=== PATIENT | male | born 1940 | race Caucasian/White ===

== ENCOUNTER 2017-11-22 16:08 | Inpatient (IN) | payer OTHER ==
[~2017-11-22] VITALS: Ht 167.6 cm; Wt 102.1 kg
[2017-11-22] VITALS (8 sets, daily range): BP systolic 141–172; BP diastolic 44–70
[2017-11-22 16:51] LABS: ABSOLUTE EOSINOPHILS 0.1 thou/uL (0.0-0.7); ABSOLUTE LYMPHOCYTES 1.5 thou/uL (0.8-5.3); ABSOLUTE MONOCYTES 0.5 thou/uL (0.0-1.2); BASOPHILS 0.6 %; EOSINOPHILS 0.8 %; HEMATOCRIT 20.1 % (42.0-52.0); LYMPHOCYTES 18.8 %; MCH 23.4 pg (26.0-34.0); MCHC 30.4 g/dL (28.0-37.0); MCV 76.9 fL (80.0-100.0); MONOCYTES 6.2 %; MPV 6.9 fl. (7.2-11.1); NUCLEATED RBCS 0 /100WBC; PLATELET COUNT* 251 thou/uL (150-400); POLYS 73.6 %; RDW-CV 18.1 % (10.5-14.5); WBC 8.2 thou/uL (4.0-11.0)
[2017-11-22 17:00] LABS: ANION GAP 10 mmol/L (7-16); BUN 24 mg/dL (7-18); CALCIUM 8.5 mg/dL (8.5-10.1); CHLORIDE 104 mmol/L (98-107); CO2 24 mmol/L (21-32); CREATININE 1.8 mg/dL (0.6-1.3); GLUCOSE 228 mg/dL (70-99); POTASSIUM 4.6 mmol/L (3.5-5.1); RBC 2.62 mil/uL (4.50-6.00); SODIUM 138 mmol/L (136-145)
[2017-11-22 17:01] LABS: APTT 25.3 Seconds (25.0-31.3); HEMOGLOBIN 6.1 gm/dL (14.0-18.0); INR 1.1; PROTIME 10.9 Seconds (9.20-11.50)
[2017-11-22 17:10] LABS: ALBUMIN 3.2 g/dL (3.4-5.0); ALKALINE PHOSPHATASE 72 U/L (46-116); NT-PRO BRAIN NAT PEPTIDE 1961 pg/mL (<300); SGOT 19 U/L (15-37); SGPT 30 U/L (30-65); TOTAL BILIRUBIN 0.5 mg/dL (<0.1-1.0); TOTAL PROTEIN 6.6 g/dL (6.4-8.2); TROPONIN-I LEVEL <0.06 ng/mL (<0.06)
[2017-11-22] MEDS ORDERED: AMIODARONE HCL100 MG PO (17:21)
[2017-11-22] MEDS ORDERED: VITAMIN D3400 UNIT PO (17:22)
[2017-11-22] MEDS ORDERED: TRAVATAN Z2.5 ML OPHTHALMIC (17:23)
[2017-11-22] MEDS ORDERED: PRAVACHOL80 MG PO (17:23)
[2017-11-22] MEDS ORDERED: IRON325 PO (17:23)
[2017-11-22] MEDS ORDERED: HYDROCHLOROTHIA25 M1 PO (17:24)
[2017-11-22] MEDS ORDERED: DIOVAN320 MG PO (17:24)
[2017-11-22] MEDS ORDERED: NORVASC5 MG PO (17:24)
[2017-11-22] MEDS ORDERED: COREG6.25 MG PO (17:25)
[2017-11-22] MEDS ORDERED: HYDRALAZINE 2525 MG PO (17:25)
[2017-11-22] MEDS ORDERED: MAGOX 400400 MG PO (17:26)
[2017-11-22] MEDS ORDERED: GLIPIZIDE 10 MG10 MG PO (17:26)
[2017-11-22] MEDS ORDERED: METFORMIN HCL500 MG PO (17:26)
[2017-11-22] MEDS ORDERED: VITAMIN B-12500 MCG PO (17:27)
[2017-11-23] VITALS (10 sets, daily range): BP systolic 145–163; BP diastolic 55–72
[2017-11-23 03:28] LABS: HEMATOCRIT 23.7 % (42.0-52.0); HEMOGLOBIN 7.5 gm/dL (14.0-18.0); MCHC 31.7 g/dL (28.0-37.0); MCV 78.7 fL (80.0-100.0); MPV 6.8 fl. (7.2-11.1); RBC 3.01 mil/uL (4.50-6.00); RDW-CV 18.3 % (10.5-14.5)
[2017-11-23 03:30] LABS: URINE BILIRUBIN NEGATIVE (Negative); URINE BLOOD NEGATIVE (Negative); URINE CLARITY CLEAR; URINE COLOR YELLOW; URINE GLUCOSE-RANDOM NEGATIVE (Negative); URINE KETONES NEGATIVE (Negative); URINE LEUKOCYTES-REFLEX NEGATIVE (Negative); URINE NITRITE-REFLEX NEGATIVE (Negative); URINE PROTEIN TRACE (Negative); URINE SPECIFIC GRAVITY 1.015 (1.005-1.030); URINE UROBILINOGEN 0.2 E.U./dl (0.2-1.0)
[2017-11-23 05:17] LABS: ALBUMIN 3.1 g/dL (3.4-5.0); CALCIUM 8.3 mg/dL (8.5-10.1); CREATININE 1.7 mg/dL (0.6-1.3); POTASSIUM 4.4 mmol/L (3.5-5.1); TOTAL BILIRUBIN 1.1 mg/dL (<0.1-1.0); TOTAL PROTEIN 5.8 g/dL (6.4-8.2)
--- NOTE | 2017-11-23 06:45 | NUR ---
ADMITTED TO ICU BED 2 @ 2024. PT RECEIVED 2 UNITS PRBC'S FOR HGB OF 6.1, RECHECK LEVEL 7.5. PT REPORTS SIGNIFICANTLY LESS SOA WHEN GETTING UP TO BSC SINCE TRANSFUSION COMPLETED. PT WEARS CPAP AT HOME FOR SLEEP APNEA BUT DOES NOT HAVE IT WITH HIM. ATTEMPTED TO SLEEP WITH NC ONLY BUT DESATED TO 85% AND AWOKE FEELING VERY SOA. PER DR RODRIGUEZ, PT PLACED ON BIPAP AT . PT ASSISTED TO BSC MULTIPLE TIMES TONIGHT WITH SBA ONLY. CALL LIGHT WITHIN REACH.
--- NOTE | 2017-11-23 10:17 | NUR ---
PATIENT CARE ASSUMED AT 0700. PATIENT AOX4. INDEPENDENT. NO LONGER EXHIBITING SOA. DENIES PAIN. AFTER 2 UNITS PRBCS, HGB 7.5. FAMILY TO BRING IN HOME CPAP, PATIENT STATED HE DID NOT SLEEP WELL WITH HOSPITAL BIPAP. DR. NÚÑEZ IN TO SEE PATIENT WHO STATED HE CAN DOWNGRADE TO MED/TELEMETRY, HAVE REGULAR DIET, AND WILL SCOPE PATIENT TOMORROW. ORDERS FOR NPO AFTER 0600.
--- NOTE | 2017-11-23 16:55 | EKG ---
[place] [id number] ELECTROCARDIOGRAM REPORT Name: DARRYN JOSHI Room: [address] ADM IN .R.#: [id number] Admission: 11/22/17 Attend Phys: Marquez Tsai, Discharge: Date of : 42 Report #: [id number] THIS REPORT FOR: //name// [facility] Test Date: 2017-11-22 Test Time: 17:15:54 Pat Name: DARRYN JOSHI Department: Room: [facility] Gender: M Acute Care Registered Nurse: NALLELY : 1940 Requested By: Brijesh Servin Order Number: [id number] MD: Jordy Laws Measurements Intervals [place] Rate: 60 P: CT: QRS: -24 QRSD: 175 T: 117 QT: 484 QTc: 484 Interpretive Statements Junctional rhythm Left bundle branch block Baseline wander in lead(s) V4 No previous ECG available for comparison Electronically Signed On 11-23-2017 16:55:00 CDT by Jordy Laws [email or web address] <ELECTRONICALLY SIGNED> By: Jordy Laws MD, [facility] 11/23/17 1655 14 Jordy Laws MD, FACC /EPI
--- NOTE | 2017-11-23 17:20 | NUR ---
PATIENT TRANSFERED TO [facility] AT 1630.
[2017-11-23 19:07] LABS: HEMATOCRIT 26.5 % (42.0-52.0); HEMOGLOBIN 8.3 gm/dL (14.0-18.0); MCH 24.8 pg (26.0-34.0); MCHC 31.4 g/dL (28.0-37.0); MCV 79.1 fL (80.0-100.0); MPV 7.3 fl. (7.2-11.1); RBC 3.35 mil/uL (4.50-6.00); RDW-CV 18.3 % (10.5-14.5)
[2017-11-24] VITALS (18 sets, daily range): BP systolic 96–143; BP diastolic 49–72
--- NOTE | 2017-11-24 01:33 | NUR ---
RECIEVED REPORT FROM SINAI CLARK RN. PT TRANSFERED FROM TELEMETRY AT 0110 TO ICU ROOM # 8 . PT INTUBATED PRIOR TO ARRIVAL FOR RESPIRATORY DISTRESS. PT IN BILATERAL SOFT WRIST RESTRAINTS TO MAINTAIN ET TUBE, FRITZ CATHETER AND OG TUBE. ORDERS RECIEVED FROM DR BARNHART.
--- NOTE | 2017-11-24 01:51 | NUR ---
CALLED TO ROOM WITH PATIENT C/O SOA. PATIENT HAD TAKEN CPAP OFF. O2 SAT CHECKED AND 77%. SKIN DUSKY AND CLAMMY. O2 APPLIED AT 2L/NC. RAT TEAM AND CODE TEAM CALLED. BLOOD SUGAR CHECKED. SEE CODE FLOW SHEET. PATIENT TRANSFERED TO ICU. REPROT GIVEN TO ROBERTO.
[2017-11-24 02:09] LABS: HEMATOCRIT 27.1 % (42.0-52.0); HEMOGLOBIN 8.2 gm/dL (14.0-18.0); MCH 24.5 pg (26.0-34.0); MCHC 30.4 g/dL (28.0-37.0); MCV 80.5 fL (80.0-100.0); MPV 7.4 fl. (7.2-11.1); RBC 3.37 mil/uL (4.50-6.00); WBC 16.3 thou/uL (4.0-11.0)
[2017-11-24 02:24] LABS: ANION GAP 9 mmol/L (7-16); BUN 24 mg/dL (7-18); CHLORIDE 105 mmol/L (98-107); CO2 24 mmol/L (21-32); CREATININE 2.2 mg/dL (0.6-1.3); GLUCOSE 304 mg/dL (70-99); POTASSIUM 4.9 mmol/L (3.5-5.1); SODIUM 138 mmol/L (136-145)
[2017-11-24 02:31] LABS: ALBUMIN 3.3 g/dL (3.4-5.0); ALKALINE PHOSPHATASE 91 U/L (46-116); MAGNESIUM 1.9 mg/dL (1.8-2.4); SGOT 28 U/L (15-37); SGPT 36 U/L (30-65); TOTAL BILIRUBIN 1.2 mg/dL (<0.1-1.0); TOTAL PROTEIN 6.3 g/dL (6.4-8.2); TROPONIN-I LEVEL <0.06 ng/mL (<0.06)
[2017-11-24 03:15] LABS: BE -3.1 mmol/L (-2 to +3); HCO3 22.5 mmol/L (22.0-26.0); PCO2 42.9 mmHg (35.0-45.0); PO2 90.7 mmHg (75.0-100.0); pH 7.338 (7.340-7.450)
--- NOTE | 2017-11-24 09:24 | CON ---
[address] [address] CONSULTATION Name: DARRYN JOSHI Room: [address] IN .R.#: [id number] Admission: 11/22/17 Attend Phys: Marquez Tsai, Discharge: Date of : 41 Report #: [id number] THIS REPORT FOR: //name// CC: Truman Tsai CARDIOLOGY CONSULTATION INDICATION: Anticoagulation management in patient with GI bleed. HISTORY OF PRESENT ILLNESS: The patient is a very pleasant 77-year-old gentleman with a history of coronary artery bypass grafting in 2003. He has had no intervention since that time. He has a history of sick sinus syndrome and is status post dual chamber pacemaker placement. He has been cardioverted at least on 2 occasions. Presently by EKG he is pacing in the atria with first degree AV block and normal ventricular conduction. He has dyspnea on exertion. He denies chest pain. He has had no intervention since his bypass surgery. He was asked by his primary physician to present to the hospital after being found to have significant/profound anemia. He has had progressive dyspnea since approximately [place]. He is without other cardiac complaint. He is not having chest pain. He denies palpitations. PAST MEDICAL HISTORY: 1. Coronary artery disease. 2. Remote history of coronary artery bypass grafting. 3. Sick sinus syndrome. 4. Status post dual chamber pacemaker placement. 5. Paroxysmal atrial fibrillation. 6. Hypertension. 7. Hyperlipidemia. 8. GERD. 9. Glaucoma. 10. Sleep apnea. 11. Neuropathy. PAST SURGICAL HISTORY: 1. Four-vessel bypass in 2003. 2. Right foot surgery. 3. Double hernia surgery. 4. Right cataract surgery with lens implant. ALLERGIES: None documented. HOME MEDICATIONS: Amiodarone 100 mg daily, vitamin D3 400 units b.i.d., [address] [place] [address] CONSULTATION Name: DARRYN JOSHI Room: [address]#: [id number] Admission: 11/22/17 Attend Phys: Marquez Tsai, Discharge: Date of : 42 Report #: [id number] Travatan eye drops 1 drop daily, iron sulfate 325 mg daily, pravastatin 80 mg at bedtime, hydrochlorothiazide 25 mg daily, valsartan 320 mg daily, amlodipine 5 mg daily, carvedilol 6.25 mg b.i.d., hydralazine 25 mg b.i.d., metformin 500 mg b.i.d., glipizide 10 mg b.i.d., magnesium oxide 400 mg daily, vitamin B12 500 mcg 2 tablets daily. PHYSICAL EXAMINATION: VITAL SIGNS: Stable. Blood pressure 145/57, pulse 69 and regular. GENERAL: This is a pleasant gentleman who is in no distress. Mood and affect appropriate. HEENT: Head normocephalic, atraumatic. Extraocular muscles intact. NECK: Shows no jugular venous distention. I do not appreciate carotid bruit. CHEST: Reveals diminished breath sounds without wheezes or rales. CARDIAC: Reveals a regular rhythm. I do not appreciate gallop or murmur. ABDOMEN: Reveals a protuberant abdomen, soft, nontender. EXTREMITIES: Shows no edema. SKIN: Warm and dry. LABORATORY DATA: Reviewed. Sodium 140, potassium 4.4, chloride 107, bicarbonate 25, BUN 23, creatinine 1.7, serum glucose 134. Troponin less than 0.06. Coags are within normal limits. White blood cell count 9.0, hemoglobin on arrival 6.1, platelet count 250,000. IMAGING: Chest x-ray shows evidence of prior CABG as well as a left-sided pacemaker. No acute volume overload or infiltrate noted. IMPRESSION AND RECOMMENDATIONS: 1. Acute gastrointestinal bleed, etiology not known. The patient is being evaluated by Gastroenterology and will have upper and lower studies tomorrow. 2. Paroxysmal atrial fibrillation. Holding Xarelto and aspirin at this time as the patient has evidence of active gastrointestinal bleeding. 3. Sick sinus syndrome, status post dual chamber pacemaker placement. Pacemaker is pacing in the atria with first degree atrioventricular block. 4. Coronary artery disease, presently stable. The patient is having no angina. 5. Hypertension. Stable on combination of losartan, amlodipine and carvedilol. 6. Hyperlipidemia. Continue statin agent at this time. 7. On amiodarone at low dose for rhythm control of atrial fibrillation. Continue current dose. At this point, the patient appears stable from a cardiac standpoint. We will follow as needed. <ELECTRONICALLY SIGNED> By: Jordy Laws MD, FACC 11/24/17 0924 [id number] Laws MD, FACC /nt
[2017-11-24 11:06] LABS: BE -2.2 mmol/L (-2 to +3); HCO3 22.4 mmol/L (22.0-26.0); PCO2 37.5 mmHg (35.0-45.0); PO2 113.6 mmHg (75.0-100.0); pH 7.395 (7.340-7.450)
--- NOTE | 2017-11-24 13:00 | NUR ---
RECEIVED REPORT FROM MERT BELTRAN. ASSESSMENT CHARTED. LOW GRADE TEMP. PT SEDATED ON PROPOFOL AND VERSED. INTUBATED. EGD TODAY. FAMILY UPDATED ON PLAN OF CARE. WILL CONTINUE TO MONITOR.
--- NOTE | 2017-11-24 15:01 | CON ---
[address] [address] CONSULTATION Name: MADELYNDARRYN Caitie Room: [address] IN .R.#: [id number] Admission: 11/22/17 Attend Phys: Marquez Tsai, Discharge: Date of : 41 Report #: [id number] THIS REPORT FOR: //name// CC: DR MICHAEL Tsai DATE OF SERVICE: 11/23/2017 REQUESTING PHYSICIAN: Dr. Tsai. REASON FOR CONSULT: Anemia, requiring blood transfusion. HISTORY OF PRESENT ILLNESS: This is a 77-year-old male with a significant cardiac history who is on anticoagulation agent including aspirin and Xarelto. The patient was seen by his primary care physician and had some blood drawn. After receiving the result, the patient was called by primary care doctor to come to [place] for severe anemia. Upon his ER visit, the patient was found to have hemoglobin of 6.6. He was symptomatic as far as having shortness of air with exertion. The patient denies any hematochezia or melena and reports that his last colonoscopy was a year ago. He believes that he had few small polyps, which were removed during the colonoscopy. The patient used to take omeprazole for gastroesophageal reflux symptoms, but reports that he has not had much of reflux symptoms. He also denies any dyspepsia, odynophagia and dysphagia. PAST MEDICAL HISTORY: Significant for history of hypertension, diabetes, hyperlipidemia, GERD, sleep apnea. Coronary artery disease, status post CABG. Neuropathy, cataract surgery and lens implant, glaucoma, double hernia surgery, right foot surgery and anemia. ALLERGIES: No known drug allergy. MEDICATIONS: Please refer to hospital [facility]. SOCIAL HISTORY: The patient lives at home. Denies tobacco or alcohol use. He has two sons that live away. FAMILY HISTORY: Noncontributory. PHYSICAL EXAMINATION: VITAL SIGNS: Reveal blood pressure of 158/55, respirations 10, pulse 60, temperature 98.0. LUNGS: Clear. CARDIOVASCULAR: [place] [address] CONSULTATION Name: MADELYNRAINELICIA Blood Room: [address]#: [id number] Admission: 11/22/17 Attend Phys: Marquez Tsai, Discharge: Date of : 41 Report #: [id number] ABDOMEN: Soft, nontender, nondistended. Bowel sounds are positive. NEUROLOGIC: The patient is alert, oriented x 3. LABORATORY DATA: Reveals sodium of 140, potassium 4.4, BUN is 23, creatinine 1.7, AST 18, ALT 27, alkaline phosphatase 67, albumin is 3.1, total protein 5.8. WBC is 9, hemoglobin 7.5, up from 6.1 after transfusing 2 units of packed RBC. MCV 76, platelet count is 215. IMAGING: CT of abdomen and pelvis was obtained. There was moderate amount of stool throughout the colon. There is also evidence of a small hiatal hernia and umbilical hernia. ASSESSMENT AND PLAN: The patient with what appears to be a chronic iron deficiency anemia without any evidence of acute gastrointestinal bleed. He has had a colonoscopy a year ago. We will consider EGD tomorrow. Meanwhile, the patient can resume regular diet and be transferred out of ICU to a [facility] hospital bed. We will make further recommendation once the patient's upper endoscopy is complete. <ELECTRONICALLY SIGNED> By: Nehemiah Odell MD 11/24/17 1501 1013 [id number] Odell MD /nt
[2017-11-24 15:10] LABS: HEMATOCRIT 23.4 % (42.0-52.0); HEMOGLOBIN 7.4 gm/dL (14.0-18.0); MCH 25.1 pg (26.0-34.0); MCHC 31.7 g/dL (28.0-37.0); MCV 79.1 fL (80.0-100.0); MPV 7.1 fl. (7.2-11.1); RBC 2.96 mil/uL (4.50-6.00); RDW-CV 18.3 % (10.5-14.5); WBC 10.6 thou/uL (4.0-11.0)
--- NOTE | 2017-11-24 16:00 | EKG ---
[place] [address] ELECTROCARDIOGRAM REPORT Name: DARRYN JOSHI Room: [address] ADM IN M.R.#: [id number] Admission: 11/22/17 Attend Phys: Marquez Tsai, Discharge: Date of : 41 Report #: [id number] THIS REPORT FOR: //name// [facility] Test Date: 2017-11-24 Test Time: 01:03:36 Pat Name: DARRYN JOSHI Department: Room: [address] Gender: M Audit Machine Operator: FRANCIS PAINTING : 1940 Requested By: Marquez Tsai Order Number: [id number] MD: Hernán Novoa Measurements Intervals [place] Rate: 74 P: OR: 196 QRS: 0 QRSD: 187 T: 104 QT: 466 QTc: 517 Interpretive Statements Atrial-paced complexes Ventricular premature complex IVCD, consider atypical LBBB Baseline wander in lead(s) II,III,aVL,aVF Compared to ECG 11/22/2017 17:15:54 Ventricular premature complex(es) now present Junctional rhythm no longer present Electronically Signed On 11-24-2017 16:00:06 CDT by Hernán Novoa [email or web address] <ELECTRONICALLY SIGNED> By: Hernán Novoa MD, FACC 11/24/17 1600 2 2 Hernán Novoa MD, FAC /EPI
[2017-11-25] VITALS (19 sets, daily range): BP systolic 110–156; BP diastolic 48–66
[2017-11-25 04:35] LABS: HEMATOCRIT 23.5 % (42.0-52.0); HEMOGLOBIN 7.6 gm/dL (14.0-18.0); MCH 25.4 pg (26.0-34.0); MCHC 32.5 g/dL (28.0-37.0); MCV 78.1 fL (80.0-100.0); MPV 7.5 fl. (7.2-11.1); RBC 3.01 mil/uL (4.50-6.00); RDW-CV 18.5 % (10.5-14.5); WBC 10.7 thou/uL (4.0-11.0)
[2017-11-25 04:55] LABS: ALBUMIN 2.7 g/dL (3.4-5.0); CALCIUM 8.1 mg/dL (8.5-10.1); CREATININE 2.1 mg/dL (0.6-1.3); POTASSIUM 3.8 mmol/L (3.5-5.1); TOTAL BILIRUBIN 0.9 mg/dL (<0.1-1.0)
[2017-11-25 06:09] LABS: BE 0.3 mmol/L (-2 to +3); HCO3 24.6 mmol/L (22.0-26.0); PCO2 37.6 mmHg (35.0-45.0); PO2 92.2 mmHg (75.0-100.0); pH 7.433 (7.340-7.450)
--- NOTE | 2017-11-25 06:10 | NUR ---
ASSUMED PATIENT CARE AT 1900. PATIENT SEDATED AT THIS TIME. SHOW HOST/HOSTESS COMPLETED DOCUMENTED. IV PATENT TO FLUIDS. FRITZ CATH CARE COMPLETED AND NOTED TO BE DRAINING PROPERLY. SOFT WRIST RESTAINTS IN PLACE TO BILATERAL ARMS. PATIENTS REMAINS ON VENTILATOR WITH SETTINGS CHARTED. OG TUBE IN PLACE, TUBE FEEDING AT 20ML/HR AT THIS TIME. WEDGES APPLIED AND PATIENT TURNED Q2H. FAMILY AT BEDSIDE THROUGH MOST OF THE SHIFT. ALL QUESTIONS FROM FAMILY ANSWERED.
--- NOTE | 2017-11-25 09:20 | NUR ---
STARTING WEANING TRIAL AT THIS TIME
--- NOTE | 2017-11-25 09:22 | CON ---
[address] [address] CONSULTATION Name: DARRYN JOSHI Room: [address] IN .R.#: [id number] Admission: 11/22/17 Attend Phys: Marquez Tsai, Discharge: Date of : 42 Report #: [id number] THIS REPORT FOR: //name// CC: Truman Tsai MD DATE OF SERVICE: 11/24/2017 PULMONARY CONSULTATION ATTENDING PHYSICIAN: Marquez Tsai M.D. PRIMARY CARE PHYSICIAN: Ashley Carias M.D. HOSPITALIST: Kim Blanco M.D. INPATIENT CARE MANAGER RN: Jordy Laws M.D. PATIENT LOCATION: The patient is located in the ICU bed 8. INDICATION FOR CONSULTATION: Acute cardiogenic pulmonary edema/pulmonary edema, acute respiratory failure and history of obstructive sleep apnea. HISTORY OF PRESENT ILLNESS: The patient is a 77-year-old male, nonsmoker, who presented with anemia and GI bleeding. The patient had been on Xarelto for atrial fibrillation and sick sinus syndrome. He had a pacemaker about a year ago. The patient has been cardioverted, the last time was on 04/30/2017 up at [place]. Supposedly, he was in sinus rhythm then. He has been maintained on Xarelto 1 tablet daily for chronic anticoagulation. He denies any abdominal pain or bloody stools. He appeared to have some nausea and vomiting and had some dyspnea. His hemoglobin was 6 when he was initially seen about 24-36 hours ago. He was given 2 units of blood, was given some Lasix. He has some chronic kidney disease and then last night, even on the CPAP and BiPAP, he had acute respiratory failure. He was transferred emergently to the ICU and then emergently intubated by ED and ET tube was at 24 cm. Chest x-ray showed pulmonary edema. Oxygenation was good, 50% on the ventilator at this time. The patient has a history of sleep apnea, according to the sons, and is slow to come off the ventilator. PAST MEDICAL HISTORY: Coronary artery disease with coronary artery bypass grafting in 2003, no intervention since then. He had [place] [address] CONSULTATION Name: DARRYN JOSHI Room: [address] IN [facility].#: [id number] Admission: 11/22/17 Attend Phys: Marquez Tsai, Discharge: Date of : 41 Report #: [id number] dual-chamber pacemaker in 2017 at [facility]. Paroxysmal atrial fibrillation, hypertension and hyperlipidemia. He has had some mild gastroesophageal reflux disease. He has obstructive sleep apnea, on CPAP, auto titrating from 15-25 cm, according to his and no supplemental oxygen. He has been on that for 10 years. Also has diabetes mellitus and peripheral neuropathy and some chronic kidney disease. PAST SURGICAL HISTORY: Includes 4-vessel coronary artery bypass grafting at [facility] in 2003, right foot surgery, bilateral inguinal hernia repair and right cataract surgery with lens implant. ALLERGIES: No known medical allergies. OUTPATIENT MEDICATIONS: Included amiodarone 100 mg daily, vitamin D3 at 400 units once or twice a day, eye drops, ferrous sulfate 325 mg daily, pravastatin 80 mg daily, hydrochlorothiazide 25 mg daily, amlodipine 5 mg daily, carvedilol 6.25 mg b.i.d., hydralazine 25 mg b.i.d., metformin 500 mg b.i.d., glipizide 10 mg b.i.d. and Xarelto is one 10 mg tablet daily that is on hold. Currently, he is on propofol and Versed for sedation at this time and DuoNeb treatments. FAMILY HISTORY: Negative for premature cardiopulmonary disease. SOCIAL HISTORY: He is a nonsmoker, nondrinker. Lives at home with his . His two sons were at the bedside. They both seem very knowledgeable about the patient and one of them appears to be an EMT. The patient denies any alcohol or illicit drug use. He is retired and lives at home with his . Occasionally, he gets bronchitis, maybe 4 times over the last 10-12 years, always treated as an outpatient. REVIEW OF SYSTEMS: A 14-point review of systems reviewed and negative. He wears his CPAP religiously and denies any loud snoring or restless sleep as long as he is wearing his CPAP. PHYSICAL EXAMINATION: GENERAL: This is a slightly obese 77-year-old male, sedated on the ventilator. He is orally intubated with ET tube between 23 and 24 cm at the lips. He is working well with the ventilator at this time. Saturations 98%. VITAL SIGNS: Currently, his blood pressure is 100/57, heart rate is 60 and regular, respirations were 16 over backup rate of 14 and temperature is 37 degrees. He is 5 feet 9 inches tall, weight is 104 kilograms or 215 pounds and BMI is 37. HEENT: Pupils are equally reactive to light and accommodate. Extraocular movements are intact. Orally intubated at 23 cm at the lips. NECK: Thick, without masses or adenopathy. CHEST: Shows a few rhonchi and a few basilar crackles. No wheeze noted. CARDIOVASCULAR: Regular rate and rhythm, without murmur, gallop or rub. Heart [facility] [address] [place] [address] CONSULTATION Name: DARRYN JOSHI Caitie Room: [address] IN [facility].#: [id number] Admission: 11/22/17 Attend Phys: Marquez Tsai, Discharge: Date of : 41 Report #: [id number] rate 60. No S3 is noted. ABDOMEN: Obese, without masses or megaly. EXTREMITIES: He has decreased heart tones at 0 to 1+ and posterior tibial and radial pulses. No cyanosis, clubbing or edema. Some diminished flow is noted. NEUROLOGIC: Grossly intact. He was moving all fours to commands before being intubated. LABORATORY DATA: Laboratory today, from 11/24/2017, shows a hemoglobin of 8.2, white count of 16,300, MCV of 80 and platelets are adequate at 263,000. Coag studies within normal limits. Chemistry this morning shows sodium 138, potassium 4.9, carbon dioxide 24, BUN is 24 and creatinine of 2.2. Previous creatinine was 1.8 and glucose was 304. Calcium is 8.0. Total bilirubin is 1.2. Other LFTs within normal limits. Albumin was 3.3. N-type natriuretic peptide is 1961, just slightly elevated. ABGs this morning at 03:00 a.m. on 50%, 500 and assist control of 14 and PEEP of 5 showed a pO2 of 90, a pH of 7.34, pCO2 is 43, bicarbonate is 22 and sat of 94%. Carboxyhemoglobin was 0.4. We will change ventilator settings. Chest x-ray this morning shows ET tube in good position, admit trachea, about T3-T4. OG tube in place. Chest x-ray shows mild pulmonary edema and pulmonary artery enlargement and vascular engorgement. Heart size upper limits of normal. IMPRESSION: 1. Acute respiratory failure/pulmonary edema, probably related to upper gastrointestinal bleed and transfusion. Also has chronic kidney disease, may need a higher dose of Lasix. 2. Obstructive sleep apnea. It sounds like this is moderate or moderately severe, may need to extubate to BiPAP. 3. Diabetes mellitus with nephropathy, vasculopathy and neuropathy. 4. Previous coronary artery disease, coronary artery bypass grafting and atrial fibrillation with chronic anticoagulation. PLAN: The anticoagulation has been held. He is off Xarelto. The patient may need EGD. So, we will await and see what the GI doctors have decided about that. We will leave him on the ventilator for a day or two. We are going to increase the settings to keep him at 50%, tidal volume of 550, assist control 14, PEEP of 7 and see if that does give him a little bit better relief, less dyspnea and then we will proceed from there. Have a chest x-ray this afternoon and tomorrow morning and also a followup chest x-ray then and see if we can work on extubation in 2-3 days. I have discussed this with both of his sons [place] [address] CONSULTATION Name: MADELYNRAINELICIA Blood Room: [address] IN [facility]#: [id number] Admission: 11/22/17 Attend Phys: Marquez Tsai, Discharge: Date of : 41 Report #: [id number] Thanks again for allowing us to participate in this man's care. It has been a 36 minute critical care consult. <ELECTRONICALLY SIGNED> By: Jared Larson MD 11/25/17 0922 0933 [id number] Larson MD /nt
[2017-11-25 09:58] LABS: BE -1.9 mmol/L (-2 to +3); HCO3 22.7 mmol/L (22.0-26.0); PCO2 37.7 mmHg (35.0-45.0); PO2 86.2 mmHg (75.0-100.0); pH 7.398 (7.340-7.450)
--- NOTE | 2017-11-25 10:33 | NUR ---
Nutrition: Pt admitted with GI bleed. Diabetisource @40mL was ordered. However, pt is now extubated. Has OGT. Pt had been eating well on hospital unit, took off CPAP, was transferred to ICU and intubated. Wt, labs, RX, hx noted. If pt is not able to advance to po diet, and will remain on a TF, would recommend Diabetisource at a goal rate of 60mL/hr, meeting 100-114% of needs. Hopeful for diet advancement though. Mild risk. Will follow pt and POC.
--- NOTE | 2017-11-25 11:03 | NUR ---
PATIENT WAS EXTUBATED AT 1015, RESTRAINTS D/C. FAMILY AT BEDSIDE. PATIENT ON 4 LITERS NASAL CANULA. DOING WELL.
[2017-11-25 11:42] LABS: BE -0.1 mmol/L (-2 to +3); HCO3 24.1 mmol/L (22.0-26.0); PCO2 37.5 mmHg (35.0-45.0); PO2 101.4 mmHg (75.0-100.0); pH 7.426 (7.340-7.450)
--- NOTE | 2017-11-25 15:53 | 2DMMODE ---
[place] [address] 2 D/M-MODE ECHOCARDIOGRAM Name: DARRYN JOSHI Room: [address] IN [facility]#: [id number] Admission: 11/22/17 Attend Phys: Marquez Giron Discharge: Date of : 42 Date of Service: 11/25/17 1552 Report #: [id number] THIS REPORT FOR: //name// APPROVED REPORT Study performed: 11/25/2017 10:50:18 EXAM: Comprehensive 2D, Doppler, and color-flow Echocardiogram Patient Location: In-Patient Room #: 008 Status: routine BSA: 2.13 HR: 60 bpm BP: 152/60 mmHg Rhythm: NSR Other Information Study Quality: Good Indications Congestive Heart Failure 2D Dimensions LVEF(%): 58.00 (>50%) IVSd: 10.14 (7-11mm) LVOT Diam: 20.79 (18-24mm) LVDd: 62.07 mm PWd: 10.77 (7-11mm) Ascending Ao: 37.39 (22-36mm) LVDs: 42.70 (25-40mm) Aortic Root: 40.04 mm Burrell's LVEF: 58.00 % Volumes Left Atrial Volume (Systole) LA ESV Index: 41.50 mL/m2 Aortic Valve AoV Peak Dejuan.: 1.25 m/s AO Peak Gr.: 6.30 mmHg LVOT Max P.88 mmHg AO Mean Gr.: 3.47 mmHg LVOT Mean P.29 mmHg LVOT Max V: 1.10 m/s AO V2 VTI: 26.33 cm LVOT Mean V: 0.69 m/s DARWIN (VTI): 3.20 cm2 LVOT V1 VTI: 24.77 cm Mitral Valve E/A Ratio: 2.14 [place] [address] 2 D/M-MODE ECHOCARDIOGRAM Name: DARRYN JOSHI Room: [address] IN ..#: [id number] Admission: 11/22/17 Attend Phys: Marquez Giron Discharge: Date of : 42 Date of Service: 11/25/17 1552 Report #: [id number] MV Decel. Time: 188.69 ms MV E Max Dejuan.: 1.13 m/s MV PHT: 54.72 ms MVA (PHT): 4.02 cm2 TDI E/Lateral E': 8.69 E/Medial E': 10.27 Medial E' Dejuan.: 0.11 m/s Lateral E' Dejuan.: 0.13 m/s Pulmonary Valve PV Peak Dejuan.: 1.18 m/s PV Peak Gr.: 5.56 mmHg Left Ventricle The left ventricle is normal size. There is abnormal segmental wall motion with distal anterior hypokinesis There is normal left ventricular wall thickness. Left ventricular systolic function is moderately decreased. LVEF is 40%. Grade IV - fixed restrictive diastolic dysfunction. Right Ventricle The right ventricle is normal size. The right ventricular systolic function is normal. Pacemaker lead is present in the right ventricle. Atria Left atrium is mildly dilated. The right atrium size is normal. Aortic Valve Mild aortic valve sclerosis. No aortic regurgitation is present. There is no aortic valvular stenosis. Mitral Valve There is mitral annular calcification. Mild mitral regurgitation. No evidence of mitral valve stenosis. Tricuspid Valve The tricuspid valve is normal in structure. Trace tricuspid regurgitation. Unable to assess PA pressure. Pulmonic Valve The pulmonary valve is normal in structure. There is no pulmonic valvular regurgitation. Great Vessels The aortic root is normal in size. IVC is [place] [address] 2 D/M-MODE ECHOCARDIOGRAM Name: MADELYNDARRYN Caitie Room: [address] IN [facility]#: [id number] Admission: 11/22/17 Attend Phys: Marquez Giron Discharge: Date of : 42 Date of Service: 11/25/17 1552 Report #: [id number] collapses with >50% inspiration Pericardium There is no pericardial effusion. <Conclusion> The left ventricle is normal size. There is normal left ventricular wall thickness. Left ventricular systolic function is moderately decreased. The right ventricle is normal size. Left atrium is mildly dilated. Mild aortic valve sclerosis. No aortic regurgitation is present. There is no aortic valvular stenosis. There is mitral annular calcification. Mild mitral regurgitation. No evidence of mitral valve stenosis. The tricuspid valve is normal in structure. IVC is normal in size and collapses with >50% inspiration There is no pericardial effusion. There is abnormal segmental wall motion with distal anterior hypokinesis LVEF is 40%. <ELECTRONICALLY SIGNED> By: Neal Dooley MD, FACC 11/25/17 [phone] Neal Dooley MD, FACC /INF
--- NOTE | 2017-11-25 18:37 | NUR ---
PATIENT EXTUABTED TODAY, ON 3 LITERS NASAL CANULA, TOLERATING WELL. PROGRESSED TO CLEAR LIQUIDS, TOLERATING WELL. SAT EDGE OF BED FOR 5 MINS TO TAKE CARVEDILOL. FAMILY AT BEDSIDE MOST OF THE DAY. UPDATED ON CARE. NO BLEEDING ISSUES NOTED, NO PAIN, NO SHORTNESS OF AIR. BED IN LOWEST POSITION, CALL LIGHT IN REACH, SOCIAL SCIENCE INSTRUCTOR IN PLACE.
[2017-11-26] VITALS (11 sets, daily range): BP systolic 106–149; BP diastolic 47–61
[2017-11-26 04:55] LABS: ALBUMIN 2.5 g/dL (3.4-5.0); CALCIUM 7.8 mg/dL (8.5-10.1); CREATININE 1.8 mg/dL (0.6-1.3); MAGNESIUM 1.9 mg/dL (1.8-2.4); POTASSIUM 3.5 mmol/L (3.5-5.1); TOTAL BILIRUBIN 0.8 mg/dL (<0.1-1.0)
[2017-11-26 06:05] LABS: BE 0 mmol/L (-2 to +3); HCO3 23.8 mmol/L (22.0-26.0); PCO2 34.9 mmHg (35.0-45.0); PO2 102.1 mmHg (75.0-100.0); pH 7.452 (7.340-7.450)
[2017-11-26 06:29] LABS: HEMATOCRIT 22.9 % (42.0-52.0); HEMOGLOBIN 7.3 gm/dL (14.0-18.0); MCH 25.3 pg (26.0-34.0); MCHC 32.1 g/dL (28.0-37.0); MCV 78.8 fL (80.0-100.0); RBC 2.9 mil/uL (4.50-6.00); RDW-CV 18.5 % (10.5-14.5); WBC 10.7 thou/uL (4.0-11.0)
--- NOTE | 2017-11-26 09:55 | NUR ---
PATIENT IS NOW TELE STATUS.
--- NOTE | 2017-11-26 10:31 | NUR ---
SPOKE WITH PT. PT ALERT AND ORIENTED AND ABLE TO ANSWER ALL QUESTIONS. PT LIVES AT HOME WITH HIS . HE SAID HE HASN'T HAD THE ENERGY TO DO MUCH THE LAST SEVERAL MONTHS, 'I JUST SAT ON THE COUCH. THEY FOUND OUT WHEN I CAME IN THAT I WAS LOW ON BLOOD.' PT HAS A CANE AND WALKER AT HOME BUT HASN'T NEEDED TO USE THEM RECENTLY. PT DOES NOT HAVE HOME O2. DISCUSSED ROLE OF CASE MGT. PT PLANS ON RETURNING HOME WITH HIS . BRIEFLY DISCUSSED WITH HIM DISCHARGE OPTIONS, DEPENDING ON HOW HE DOES WITH THERAPY, PT AGAIN SAYS HE WANTS TO GO HOME AT DISCHARGE. CASE MGT WILL CONTINUE TO FOLLOW.
--- NOTE | 2017-11-26 14:45 | NUR ---
PATIENT WENT TO ROOM 207 BY WHEELCHAIR. FAMILY PRESENT AT TRANSFER. ALL BELONGINGS, MEDICATIONS, AND PATIENT CHART SENT. NURSE REPORT GIVEN TO RANI PAINTING. ALL QUESTIONS ANSWERED.
--- NOTE | 2017-11-26 15:00 | NUR ---
RECEIVED REPORT. PT TRANSFERRED TO ROOM 207. VSS. CARDIAC MONTIORING PLACED. PT ALERT AND ORIENTED. PT ON RA. IV SALINE LOCKED. FRITZ REMOVED BY PREV. RN. PT ABLE TO VOID. PT DNEIES ANY PAIN AT THIS TIME. PT'S FAMILY AT BEDSIDE. PT ORIETNED TO ROOM AND CALL LIGHT. FALL PERCATIONS IN PLACE. SCD'S IN PLACE. WILL CONTINUE TO MONTIOR FOR DURATION OF SHIFT.
[2017-11-27] VITALS (7 sets, daily range): BP systolic 135–162; BP diastolic 50–66
--- NOTE | 2017-11-27 04:27 | NUR ---
PATIENT RESTED IN BED, DID NOT SHOW SIGNS OF DISTRESS. NO ACUTE CHANGES, FALL PRECAUTIONS IN PLACE, BED ALARM ON, CALL LIGHT WITHIN REACH. PATIENT BLOOD SUGAR LOWER, ORAL CARBS WAS GIVEN, BLOOD SUGAR RETURNED TO NORMAL. PATIENT ASKED FOR MED TO HELP WITH BOWEL MOVEMENT. DOCTOR NOTIFIED OF PATIENT REQUEST AND OF LOW BLOOD SUGAR, NO ORDERS REGARDING BLOOD SUGAR. MIRLAX ORDERED TO HELP WITH BOWEL MOVEMENT. PATIENT HEART RATE CONTROLLED.
[2017-11-27 05:38] LABS: HEMATOCRIT 22.4 % (42.0-52.0); HEMOGLOBIN 7.1 gm/dL (14.0-18.0); MCHC 31.7 g/dL (28.0-37.0); MCV 78.8 fL (80.0-100.0); MPV 7.9 fl. (7.2-11.1); RBC 2.84 mil/uL (4.50-6.00); RDW-CV 19.4 % (10.5-14.5); WBC 9.8 thou/uL (4.0-11.0)
[2017-11-27 05:43] LABS: CREATININE 1.9 mg/dL (0.6-1.3); MAGNESIUM 1.7 mg/dL (1.8-2.4); POTASSIUM 3.7 mmol/L (3.5-5.1)
--- NOTE | 2017-11-27 15:07 | NUR ---
RECEIVED REPORT AND ASSUMED CARE AT 0730. VSS. CARDIAC MONITORING IN PLACE. PT A&OX4. PT ON RA. PT UP SBA WITH WALKER IN ROOM. PT DENIES ANY COMPLAINTS OF PAIN. DISCUSSED PLAN OF CARE WITH PT. PT VERBALIZED UNDERSTANDING. BED IN LOWEST POSITION, BED ALARM ON, CALL LIGHT WITHIN REACH. WILL CONTINUE TO MONITOR FOR REMAINDER OF THE SHIFT
--- NOTE | 2017-11-27 18:20 | NUR ---
PT IN RROM RESTING. PT IS ON RA. VSS. CARDIAC MONITORING IN PLACE. PT A&OX4 AND UP SBA TO BR. PT DENIES ANY COMPLAINTS OF PAIN. HOURLY ROUNDING COMPLETED AND PT NEEDS MET. BED IN LOWEST POSITION, CALL LIGHT WITHIN REACH. BED ALARM ON. PT PROGRESSING TOWARDS GOALS. WILL CONTINUE TO MONITOR
[2017-11-28] VITALS (8 sets, daily range): BP systolic 132–153; BP diastolic 54–62
[2017-11-28 03:45] LABS: HEMATOCRIT 21.8 % (42.0-52.0); MCH 24.7 pg (26.0-34.0); MCHC 31.4 g/dL (28.0-37.0); MCV 78.6 fL (80.0-100.0); MPV 7.5 fl. (7.2-11.1); RBC 2.78 mil/uL (4.50-6.00); RDW-CV 18.9 % (10.5-14.5)
[2017-11-28 03:55] LABS: HEMOGLOBIN 6.9 gm/dL (14.0-18.0)
[2017-11-28 04:01] LABS: CALCIUM 7.9 mg/dL (8.5-10.1); POTASSIUM 3.6 mmol/L (3.5-5.1)
--- NOTE | 2017-11-28 05:10 | NUR ---
ASSUMED CARE OF PATIENT AT 1900. PATIENT HGB DROP TO 6.9. DOCTOR MARIANNA Williamson NOTIFED, NO NEW ORDERS. PATEINT DID NOT SHOW SIGNS OF DISTRESS. PATIENT RESTED IN BED. FALL PRECAUTIONS IN PLACE, BED ALARM ON, HOURLY ROUNDING OBSERVED.
--- NOTE | 2017-11-28 12:42 | NUR ---
ASSUMED CARE OF PT AT 0730. PT SITTING UP IN THE CHAIR WAITING FOR BREAKFAST. PT A&0X4. DENIES ANY PAIN OR SHORTNESS OF BREATH AT THIS TIME. PT TRACING SR WITH BBB ON THE WASTE COTTON CLEANER. PACEMAKER NOTED. EDEMA NOTED TO BILATERAL FEET. IV LASIX DISCONTINUED FOR TODAY PER DR CABRAL DUE TO CR RISING. PT ON RA SAT UPPER 90'S. PT WEARS CPAP AT NOC. PT UP WITH 1 ASSIST AND WALKER TO BATHROOM. PT SON FROM OUT [place] STATE HERE TO VISIT WITH MANY QUESTIONS REGARDING INFUSION RATE OF BLOOD THAT PT RECEIVED ON FRIDAY. DR CABRAL HERE TO SPEAK TO PT SON. PT GOAL FOR TODAY IS TO BE UP TO CHAIR FOR MEALS, WORK WITH PHYSICAL AND OCCUPATIONAL THERAPY AND MONIOR HGB. AM ASSESSMENT CHARTED. MEDICATIONS PER OCT. PT REPOSITIONS SELF. HOURLY ROUNDING OBSERVED. BED IN LOW POSITION. CALL LIGHT WITHIN REACH. WILL CONTINUE PLAN OF CARE.
--- NOTE | 2017-11-28 17:23 | NUR ---
NO ACUTE CHANGES THROUGHOUT SHIFT. REFER TO CHARTING. PT UP TO CHAIR FOR ALL MEALS, TOLERATED WELL. PT WORKED WITH PHYSICAL THERAPY TODAY- AMBULATED IN THE HALLWAY AND [place]WELL, TOLERATED WELL. PT DENIES ANY PAIN OR SHORTNESS OF BREATH THROUGHOUT SHIFT. PT CONTINUES TO TRACE SR WITH BBB ON THE ALLERGY AND IMMUNOLOGY SPECIALIST. PACEMAKER NOTED. ON RA SAT UPPER 90'S. PT UP WITH 1 ASSIST AND WALKER TO BATHROOM. FAMILY AT BEDSIDE THROUGHOUT SHIFT. POSSIBLE DISCHARGE IN AM IF HGB REMAINS STABLE. MEDICATIONS PER OCT. PT REPOSITIONS SELF. HOURLY ROUNDING OBSERVED. BED IN LOW POSITION. BED/CHAIR ALARM IN PLACE. FALL PRECAUTIONS IN PLACE. CALL LIGHT WITHIN REACH. WILL CONTINUE PLAN OF CARE.
--- NOTE | 2017-11-29 01:54 | NUR ---
RECIEVED REPORT AT 1930. ASSESSMENT COMPLETED CHARTED. PT ON CPAP SLEEPING AT THIS TIME. PT C/O RIGHT HIP PAIN WHICH IS ADEQUATELY ALLEVIATED WITH PRN TYLENOL. A & O X 4, ABLE TO MAKE NEEDS KNOWN, CALL LIGHT WITHIN REACH. WILL CONTINUE WITH PLAN OF CARE.
[2017-11-29 04:15] VITALS: BP 153/64
[2017-11-29 04:53] LABS: HEMATOCRIT 22.3 % (42.0-52.0); HEMOGLOBIN 7.2 gm/dL (14.0-18.0); MCHC 32.1 g/dL (28.0-37.0); MCV 77.7 fL (80.0-100.0); MPV 7.7 fl. (7.2-11.1); RBC 2.87 mil/uL (4.50-6.00); RDW-CV 18.8 % (10.5-14.5); WBC 7.1 thou/uL (4.0-11.0)
[2017-11-29 05:19] LABS: ALBUMIN 2.4 g/dL (3.4-5.0); CREATININE 1.9 mg/dL (0.6-1.3); MAGNESIUM 1.9 mg/dL (1.8-2.4); POTASSIUM 3.8 mmol/L (3.5-5.1); TOTAL BILIRUBIN 0.4 mg/dL (<0.1-1.0); TOTAL PROTEIN 5.8 g/dL (6.4-8.2)
[2017-11-29 07:45] VITALS: BP 138/53
[2017-11-29 12:37] VITALS: BP 146/57
--- NOTE | 2017-11-29 12:46 | NUR ---
Hemetology consult placed. At or Pt's wants to use [facility] , dc orders, H&P and facesheet will need to be faxed to [phone], p:[phone]. CURTIS left JET paperwork with dtr.
[2017-11-29 16:52] VITALS: BP 156/70
--- NOTE | 2017-11-29 17:54 | NUR ---
RECEIVED REPORT AND ASSUMED CARE AT 0730. VSS. CARDIAC MONITORING IN PLACE. PT ON RA, UP WITH ASSIST WITH WALKER IN ROOM. PT REPORTED PAIN IN R HIP. PRN MEDICATION ADMINISTERED. PT REPORTED PARTIAL PAIN RELIEF. PT COMPLETED/MET GOALS WITH PHYS THERAPY PER STAFF. PT AMBULATED IN HALLWAY WITH NURSING STAFF. HEMATOLOGY CONSULTED. PT PROGRESSING TOWARDS GOALS. HOURLY ROUNDING COMPLETED AND ALL NEEDS MET. BED IN LOWEST POSITION, CALL LIGHT WITHIN REACH, BED ALARM ON, OR CHAIR ALARM USED THROUGHOUT SHIFT. WILL CONTINUE TO MONITOR FOR THE REMAINDER OF THE SHIFT
[2017-11-29 20:00] VITALS: BP 156/63
[2017-11-29 23:49] VITALS: BP 128/54
[2017-11-30 01:26] LABS: HEMATOCRIT 21.4 % (42.0-52.0); MCH 24.9 pg (26.0-34.0); MCHC 31.7 g/dL (28.0-37.0); MCV 78.5 fL (80.0-100.0); MPV 7.5 fl. (7.2-11.1); RBC 2.72 mil/uL (4.50-6.00); RDW-CV 18.4 % (10.5-14.5); WBC 7.1 thou/uL (4.0-11.0)
[2017-11-30 01:28] LABS: HEMOGLOBIN 6.8 gm/dL (14.0-18.0)
[2017-11-30 01:30] LABS: CALCIUM 7.8 mg/dL (8.5-10.1); CREATININE 1.8 mg/dL (0.6-1.3); MAGNESIUM 1.9 mg/dL (1.8-2.4); POTASSIUM 3.8 mmol/L (3.5-5.1)
--- NOTE | 2017-11-30 01:59 | NUR ---
ASSUMED PT CARE AT 19:15. PT IS ALERT AWAKE ORIENTED X4. SITTING IN CHAIR . VITAL SIGNS TAKEN. RESULTS ARE WITHIN NORMAL LIMIT. ASSESSEMENT PERFOREMED. REFER TO CHART. EDEMA +3 IN LOWER EXTREMITIES WHICH ARE ELEVATED . PT ABLE TO WALK ALONE WITH WALKER TO RESTROOM AND CALL LIGHT WHENEVER HE FEELS THE NEED TO URINATE. PT COMPLAINS OF PAIN LEVEL OF 9 IN L HIP. TYLENOL WAS ADMINISTERED ORDERED FOR PAIN. PT IS NOW FREE FROM PAIN, AND SLEEPING. SINUS RYTHM WITH PVCS ON THE MONITOR. PT ALSO HAS A PACER IN PLACE. OXYGEN SATUATION IS 95 ON RA. L JUGULAR CENTRAL LINE IS PATENT. ACCUCHECK WAS PERFORMED BY [employer] AND INSULIN WAS ADMINISTERED PRESCRIBED. PT DID NOT STATE ANY CONCERN BUT STATES HE DOES NOT WANT ANY BLOOD TRANSFUSION BECAUSE OF PREVIOUS EPISODE OF OVERLOAD ASSOCIATED WITH TRANSFUSION. LAB WAS DRAWED AT 01:00 , CRITICAL LAB VALUE FOR HGB WAS 6.8. RESULT COMMUNICATED TO DR. PATRICE MENG . SAYS THAT HE HAD PREVIOUSLY ORDERED IRON FOR PT IN THE MORNING. 1 UNIT WAS GIVEN DURING THE DAY. THE OTHER UNIT IS TO BE GIVEN AT 09:00 AM IN THE MORNING SCEDULED ON Oct. PT IS ASYMTOMATIC. RESTING IN BED WITH CIPAP ON. WILL CONTINUE TO MONITOR
[2017-11-30 03:44] VITALS: BP 136/58
[2017-11-30 08:00] VITALS: BP 146/58
[2017-11-30 11:51] VITALS: BP 109/55
--- NOTE | 2017-11-30 12:23 | NUR ---
ASSUMED CARE OF PT AT 0730. PT SITTING UP IN THE CHAIR WAITING FOR BREAKFAST. PT A&0X4. PT COMPLAINS OF PAIN TO RIGHT HIP. TREATED WITH PRN TYLENOL WITH PARTIAL RELIEF. PT STATES DURING THE DAY IT GETS BETTER HE IS UP AND MOVING AND OUT OF THE BED. PT TRACING SR WITH BBB/PACED RHYTHM ON THE DYSLEXIA TEACHER. EDEMA NOTED TO BILATERAL LE'S. PT ENCOURAGED TO ELEVATE LE'S. PT ON RA SAT 98%. DENIES ANY SHORTNESS OF BREATH. PT WEARS CPAP AT [facility]. PT UP WITH 1 ASSIST AND WALKER TO BATHROOM. PT HGB THIS AM-6.8. PT RECEIVED IRON INFUSION YESTERDAY AND TODAY PER HEMATOLOGY. CENTRAL LINE TO LEFT JUGULAR LEFT IN PLACE PER DR RODRIGUEZ REQUEST. PT GOAL FOR TODAY IS TO INCREASE ACTIVITY, IRON INFUSION AND UP TO CHAIR FOR ALL MEALS. AM ASSESSMENT CHARTED. MEDICATIONS PER OCT. PT REPOSITIONS SELF. HOURLY ROUNDING OBSERVED. BED IN LOW POSITION. CALL LIGHT WITHIN REACH. WILL CONTINUE PLAN OF CARE.
[2017-11-30 15:50] VITALS: BP 146/53
--- NOTE | 2017-11-30 17:27 | NUR ---
NO ACUTE CHANGES THROUGHOUT SHIFT. REFER TO CHARTING. HEMATOLOGY HERE TO SEE PT. ORDERS RECEIVED FOR ADDITIONAL 3 DOSAGES OF IV IRON HGB 6.8 THIS AM. HEMATOLOGY WOULD LIKE A TOTAL OF 5 DOSES IV IRON-IF PT IS DISCHARGED PRIOR TO 5 DOSES BEING COMPLETED, PT CAN RECEIVE REMAINING DOSES OUTPT PER HEMATOLOGY. MRSA NASAL SWAB OBTAINED AND SENT TO LAB. AWAITING RESULTS. PER DR RODRIGUEZ, CENTRAL LINE TO REMAIN IN PT IS RECEIVING IV IRON. FAMILY AT BEDSIDE THROUGHOUT SHIFT. PT DENIES ANY PAIN OR SHORTNESS OF BREATH THROUGHOUT THE AFTERNOON. CONTINUES TO TRACE SR WITH BBB/PACED RHYTHM ON THE FIELD SALES REPRESENTATIVE. ON RA SAT UPPER 90'S. PT UP WITH 1 ASSIST WALKER TO BATHROOM. PT AMBULATED IN HALLWAY TODAY WITH NURSING STAFF-TOLERATED WELL. MEDICATIONS PER OCT. PT REPOSITIONS SELF. HOURLY ROUNDING OBSERVED. BED IN LOW POSITION. CALL LIGHT WITHIN REACH. WILL CONTINUE PLAN OF CARE.
[2017-11-30 20:00] VITALS: BP 144/59
--- NOTE | 2017-11-30 23:10 | NUR ---
ASSUMED PT CARE AT 19:15 . RECEIVED REPORT FROM NURSE. PT IS ALERT AWAKE, ORIENTED X 4 . LAYING IN BED. COMPLAIN OF PAIN LEVEL OF 9 IN R. HIP. TYLENOL WEERE ADMINISTERED FOR PAIN. VITAL SINGS WITHIN NORMAL LIMIT. SINUS RYTHM ON MONITOR. PT IS PACED WELL. L JUGULAR LINE IS PATENT. PLAN TO CHANGE DRESSING TODAY . ASSESSMENT PERFORMED REFER TO CHART. PT GOT UP TO GO USE THE RESTROOM WITH WALKER. CIPAP IS ON PT IS GETTING READY TO FALL ASLEEP. MEDICATIONS WERE ADMINISTERED. 97 % OXYGENTION ON RA. PT IS NOW SLEEPING IN BED WITHOUT ANY COMPLAINT ABOUT PAIN. WILL CONTINUE TO MONITOR.
[2017-12-01 00:06] VITALS: BP 134/54
[2017-12-01 04:06] VITALS: BP 148/56
[2017-12-01 04:28] LABS: HEMATOCRIT 22.5 % (42.0-52.0); HEMOGLOBIN 7.1 gm/dL (14.0-18.0); MCH 24.9 pg (26.0-34.0); MCHC 31.4 g/dL (28.0-37.0); MCV 79.2 fL (80.0-100.0); MPV 7.8 fl. (7.2-11.1); RBC 2.84 mil/uL (4.50-6.00); RDW-CV 19.1 % (10.5-14.5); WBC 7.6 thou/uL (4.0-11.0)
[2017-12-01 04:38] LABS: CREATININE 1.9 mg/dL (0.6-1.3); POTASSIUM 4.1 mmol/L (3.5-5.1)
[2017-12-01 08:03] VITALS: BP 147/60
--- NOTE | 2017-12-01 09:32 | NUR ---
ASSUMED CARE OF PATIENT AFTER REPORT THIS MORNING. PATIENT AWAKE, ALERT, AND ORIENTED APPROPRIATELY. PHYSICAL ASSESSMENT COMPLETED AND CHARTED. COMPLAINED OF PAIN TO RIGHT HIP. STATED IT WAS FROM LAYING IN THE BED. DID NOT REQUEST ANY PAIN MEDICATIONS. SCHEDULED MEDICATIONS GIVEN, SEE EMAR FOR DOCUMENTATION. VITAL SIGNS STABLE. OXYGEN SATURATION WITHIN NORMAL LIMITS ON ROOM AIR. PATIENT TRANSFERS AND AMBULATES WITH ASSISTANCE FROM STAFF. USES CALL LIGHT APPROPRIATELY. SITTING IN CHAIR AT BEDSIDE. FAMILY IN ROOM. CALL LIGHT WITHIN REACH. NURSING WILL CONTINUE TO MONITOR.
[2017-12-01 11:02] VITALS: BP 153/59
--- NOTE | 2017-12-01 11:05 | NUR ---
Pt discharging to home today with [facility]. Faxed dc orders. Family in room and will transport. DPOA completed, copy on chart.
[2017-12-01] MEDS ORDERED: DOXYCYCLINE 10100 MG PO (11:06)
[2017-12-01 11:07] VITALS: BP 144/53
[2017-12-01 11:31] VITALS: BP 153/59
--- NOTE | 2017-12-01 13:10 | NUR ---
RECEIVED ORDERS TO DISCHARGE PATIENT HOME WITH HOME HEALTH. DISCHARGE PAPERWORK COMPLETED AND SIGNED BY ALL APPROPRIATE PARTIES, DISCUSSED WITH PATIENT. GIVEN PRESCRIPTION AND INFORMATION REGARDING THEM. CENTRAL LINE DISCONTINUED AND PRESSURE DRESSING IN PLACE. PATIENT DISCHARGED AT THIS TIME WITH FAMILY. ESCORTED TO FRONT DOOR VIA WHEELCHAIR BY PERLITA PRIETO.
--- NOTE | 2017-12-02 11:16 | CON ---
[address] [address] CONSULTATION Name: DARRYN JOSHI Room: [address]#: [id number] Admission: 11/22/17 Attend Phys: Marquez Tsai, Discharge: 12/01/17 Date of : 42 Report #: [id number] THIS REPORT FOR: //name// CC: Ashley Tsai DATE OF SERVICE: 11/29/2017 REQUESTING PHYSICIAN: Dr. Tsai. DIAGNOSIS: Microcytic anemia. SUBJECTIVE: A 77-year-old male was evaluated today because of microcytic anemia. The patient was admitted after he has anemia, which was found as an outpatient. Hemoglobin was 6.6. Upon evaluation, the patient had an iron profile, which showed a ferritin of 11, TIBC 337, iron 17. The patient received blood transfusion and developed pulmonary edema. However, at this point, he recovered from all that. He was on BiPAP and currently he is off oxygen. The patient had GI workup by Dr. Hoffmann. EGD showed small hiatal hernia, small amount of fluids in the stomach. The patient was on aspirin and Xarelto. REVIEW OF SYSTEMS: All systems reviewed. It was negative except above. PAST MEDICAL HISTORY: Hypertension, diabetes mellitus, hypertension, dyslipidemia, GERD, coronary artery disease, status post CABG. MEDICATIONS: Per admission list. PAST SURGICAL HISTORY: Foot surgery, CABG, cataract surgery. SOCIAL HISTORY: No smoking, no alcohol use, no drug abuse. ALLERGIES: No known allergy. PHYSICAL EXAMINATION: VITAL SIGNS: Today, temperature 36.8, pulse is 59, respirations 18, blood pressure is 146/59. GENERAL: The patient was sitting in chair, was not in acute distress. HEENT: Decreased breathing sounds bilaterally. HEART: Regular rate and rhythm. S1, S2 within normal limit. ABDOMEN: Soft, nontender, nondistended, bowel sounds positive. EXTREMITIES: +2 edema bilaterally. LABORATORY DATA: Today, WBC 7.1, hemoglobin 7.2, MCV 77.7, RDW 18.8, [place] [address] CONSULTATION Name: DARRYN JOSHI Room: [address]#: [id number] Admission: 11/22/17 Attend Phys: Marquez Tsai, Discharge: 12/01/17 Date of : 42 Report #: [id number] count 205. PT 10.9, PTT 25.3. Creatinine is 1.9. B12 is 1741, folic acid is 8.8. IMAGING DATA: CT scan of the abdomen showed moderate stool throughout transverse, descending, and sigmoid colon. There are no inflammatory small bowel processes. Hiatal hernia. ASSESSMENT AND PLAN: A 77-year-old male with multiple comorbidities including diabetes mellitus, cardiac history, was evaluated because of symptomatic microcytic anemia. His iron profile showed low ferritin. Most likely, it is consistent with iron deficiency due to blood loss. However, there is no obvious source of bleeding based on GI workup. The patient was transfused and he developed pulmonary edema. I discussed with him the option of premedication with Lasix; however, the patient expresses concern about having to go through again through pulmonary edema. Alternatively, I would like to start him on IV iron today and tomorrow with Venofer 200 mg IV. We will arrange very close followup on Friday at the multispecialty clinic. Total of 5 doses of iron will be arranged. I would like to check his hemoglobin also as an outpatient and we will monitor that closely. The patient agreed to the plan. We will follow the patient during hospitalization. <ELECTRONICALLY SIGNED> By: Elba Benton MD 12/02/17 1116 [id number] [id number] Benton MD /nt
== END 2017-12-01 13:15 | disposition home health service (06) | DRG 377 ==
LOC: M.ERS 16:08 → M.ICU 17:37 → M.TBA-CV 17:37 → M.ICU 20:18 → M.2W 11-23 16:42 → M.ICU 11-24 01:13 → M.2W 11-26 15:00
PROVIDERS: Family Medicine; Internal Medicine; Internal Medicine Gastroenterology; Internal Medicine Pulmonary Disease; Personal Emergency Response Attendant; ADMIT Family Medicine
PROC: 05H433Z Insertion of Infusion Device into Left Innominate Vein, Percutaneous Approach (ICD-10-PCS; principal; 2017-11-22)
PROC: 0BH17EZ Insertion of Endotracheal Airway into Trachea, Via Natural or Artificial Opening (ICD-10-PCS; principal; 2017-11-22)
PROC: 30233N1 Transfusion of Nonautologous Red Blood Cells into Peripheral Vein, Percutaneous Approach (ICD-10-PCS; principal; 2017-11-22)
PROC: 5A1945Z Respiratory Ventilation, 24-96 Consecutive Hours (ICD-10-PCS; principal; 2017-11-22)
PROC: 0DJ08ZZ Inspection of Upper Intestinal Tract, Via Natural or Artificial Opening Endoscopic (ICD-10-PCS; 2017-11-24)
DX: K92.2 Gastrointestinal hemorrhage, unspecified (principal); J96.01 Acute respiratory failure with hypoxia; J69.0 Pneumonitis due to inhalation of food and vomit; I50.43 Acute on chronic combined systolic (congestive) and diastolic (congestive) heart failure; N17.9 Acute kidney failure, unspecified; R65.10 Systemic inflammatory response syndrome (SIRS) of non-infectious origin without acute organ dysfunction; I13.0 Hypertensive heart and chronic kidney disease with heart failure and stage 1 through stage 4 chronic kidney disease, or unspecified chronic kidney disease; E78.5 Hyperlipidemia, unspecified; K21.9 Gastro-esophageal reflux disease without esophagitis; H40.9 Unspecified glaucoma; D64.9 Anemia, unspecified; I25.10 Atherosclerotic heart disease of native coronary artery without angina pectoris; I48.0 Paroxysmal atrial fibrillation; E11.40 Type 2 diabetes mellitus with diabetic neuropathy, unspecified; Z96.1 Presence of intraocular lens; E11.22 Type 2 diabetes mellitus with diabetic chronic kidney disease; G47.33 Obstructive sleep apnea (adult) (pediatric); E11.69 Type 2 diabetes mellitus with other specified complication; B35.1 Tinea unguium; E11.65 Type 2 diabetes mellitus with hyperglycemia; K44.9 Diaphragmatic hernia without obstruction or gangrene; N18.3 Chronic kidney disease, stage 3 (moderate); Z95.1 Presence of aortocoronary bypass graft; Z98.41 Cataract extraction status, right eye; Z79.899 Other long term (current) drug therapy; Z79.84 Long term (current) use of oral hypoglycemic drugs; Z79.01 Long term (current) use of anticoagulants; Z79.82 Long term (current) use of aspirin; Z95.810 Presence of automatic (implantable) cardiac defibrillator

== ENCOUNTER → 2017-12-02 | Outpatient (CLI) | payer OTHER ==
[~2017-12-02] MED LIST: AMIODARONE HCL100 MG PO; COREG6.25 MG PO; DIOVAN320 MG PO; DOXYCYCLINE 10100 MG PO; GLIPIZIDE 10 MG10 MG PO; HYDRALAZINE 2525 MG PO; HYDROCHLOROTHIA25 M1 PO; IRON325 PO; MAGOX 400400 MG PO; METFORMIN HCL500 MG PO; NORVASC5 MG PO; PRAVACHOL80 MG PO; TRAVATAN Z2.5 ML OPHTHALMIC; VITAMIN B-12500 MCG PO; VITAMIN D3400 UNIT PO
[2017-12-02 11:55] VITALS: BP 135/63
[2017-12-02 13:08] VITALS: BP 142/66
--- NOTE | 2017-12-02 14:26 | NUR ---
ARRIVED AMBULATORY. MADE SELF COMFORTABLE IN RECLINER. IC STARTED WTIH OUT DIFFICULTY. INFUSION COMPLETED AND TOLERATED WELL. DENIES QUESTIONS OR NEEDS AT DISCHARGE.
== END ==
LOC: M.INFUS 11:38
DX: D50.9 Iron deficiency anemia, unspecified (principal)

== ENCOUNTER → 2017-12-02 | Outpatient (CLI) | payer OTHER ==
--- NOTE | 2017-12-09 11:41 | CON ---
[address] [address] CONSULTATION Name: DARRYN JOSHI Room: [facility]#: [id number] Admission: 12/02/17 Attend Phys: Elba Benton MD Discharge: Date of : 42 Report #: [id number] THIS REPORT FOR: //name// CC: Ashley Benton DATE OF SERVICE: 12/02/2017 DIAGNOSIS: Microcytic anemia. SUBJECTIVE: A 77-year-old male was seen in the hospital last week because of microcytic anemia. He has been on anticoagulation with Xarelto. His ferritin was on the low normal at the level of 11 ng/mL and TIBC of 337. The patient received a blood transfusion; however, he developed pulmonary edema and he declined any further transfusion. He ended up on the BiPAP. At the time of discharge from the hospital on 12/01/2017, the patient's hemoglobin was 7.1. Again, he refused any further transfusion. He was started on IV iron. He received 3 doses of 200 mg of IV Venofer. The patient today felt significantly better. He has no major shortness of breath, more energy; however, he is still not back to his baseline. He tolerated his IV iron without any allergic reaction. REVIEW OF SYSTEMS: All systems were reviewed, it was negative except above. PAST MEDICAL HISTORY: Hypertension, diabetes mellitus, dyslipidemia, GERD, coronary artery disease. MEDICATIONS: Amiodarone 100 mg p.o. daily, cholecalciferol 400 units twice a day, pravastatin 80 mg p.o. daily, hydrochlorothiazide 25 mg p.o. daily, valsartan 320 mg p.o. daily, amlodipine 5 mg p.o. daily, carvedilol 6.25 mg p.o. daily, hydralazine 25 mg p.o. twice a day, metformin 500 mg p.o. twice a day, glipizide 10 mg p.o. twice a day, magnesium oxide 400 mg p.o. daily, B12 1000 mcg p.o. daily, Xarelto have been put on hold upon discharge. PHYSICAL EXAMINATION: VITAL SIGNS: Today, temperature is 97.4, pulse is 24, respirations are 95% on room air, blood pressure is 138/60. GENERAL: The patient was sitting in chair, was not in acute distress. HEENT: Clear to auscultations bilaterally; however, there were mild fine rales at the base. HEART: Regular rate and rhythm. S1, S2 within normal limits. ABDOMEN: Soft, nontender, nondistended. Bowel sounds positive. EXTREMITIES: +2 edema bilaterally. LABORATORY DATA: On 12/01/2017, WBC 7.6, hemoglobin 7.1, MCV 79.2, RDW 19.1, platelets 225. Creatinine is 1.9. Iron profile on 11/24/2017 showed TIBC 337, [place] [address] CONSULTATION Name: DARRYN JOSHI Room: [facility]#: [id number] Admission: 12/02/17 Attend Phys: Elba Benton MD Discharge: Date of : 42 Report #: [id number] saturation 5%, ferritin 11 ng/mL, B12 1741, folate 8.8. ASSESSMENT AND PLAN: A 77-year-old male was evaluated because of a microcytic anemia. Most likely, it is related to iron deficiency. The patient had chronic kidney disease and diabetes, which could contribute to anemia; however, I would like to continue iron infusion. We will arrange for IV iron, fourth and fifth dose today and on 12/04/2017. We will repeat CBC in 3 weeks from today and follow up in 5 weeks. All questions have been answered. <ELECTRONICALLY SIGNED> By: Elba Benton MD 12/09/17 1141 1107 [id number] Benton MD /nt
== END ==
LOC: M.RTH 03:25 → EDSTATUS 10:30 → M.RTH 10:30
DX: N18.9 Chronic kidney disease, unspecified (principal); E11.22 Type 2 diabetes mellitus with diabetic chronic kidney disease; D64.89 Other specified anemias

== ENCOUNTER → 2017-12-23 | Outpatient (CLI) | payer OTHER ==
[2017-12-23 11:07] LABS: ABSOLUTE EOSINOPHILS 0.1 thou/uL (0.0-0.7); ABSOLUTE LYMPHOCYTES 1.2 thou/uL (0.8-5.3); ABSOLUTE MONOCYTES 0.4 thou/uL (0.0-1.2); ABSOLUTE NEUTROPHILS 5.1 thou/uL (1.6-8.1); BASOPHILS 0.5 %; HEMATOCRIT 31.2 % (42.0-52.0); LYMPHOCYTES 17.9 %; MCH 27.3 pg (26.0-34.0); MCV 85.3 fL (80.0-100.0); MPV 7.6 fl. (7.2-11.1); NUCLEATED RBCS 0 /100WBC; PLATELET COUNT* 149 thou/uL (150-400); POLYS 74.6 %; RBC 3.66 mil/uL (4.50-6.00); RDW-CV 24.4 % (10.5-14.5); WBC 6.9 thou/uL (4.0-11.0)
[2017-12-23 11:35] LABS: % SATURATION 19 % (20-39); IRON 54 ug/dL (50-175)
[2017-12-23 12:24] LABS: ANISOCYTOSIS 2+; PLATELET ESTIMATE ADEQUATE
[2017-12-23 12:25] LABS: POIKILOCYTOSIS Occasional
[2017-12-23 12:26] LABS: HYPOCHROMASIA Occasional
== END ==
LOC: M.LAB 10:49
PROVIDERS: Internal Medicine
DX: D50.9 Iron deficiency anemia, unspecified (principal)

== ENCOUNTER → 2018-01-05 | Outpatient (CLI) | payer OTHER ==
[2018-01-05 10:46] LABS: ABSOLUTE EOSINOPHILS 0.1 thou/uL (0.0-0.7); ABSOLUTE LYMPHOCYTES 1.2 thou/uL (0.8-5.3); ABSOLUTE MONOCYTES 0.4 thou/uL (0.0-1.2); ABSOLUTE NEUTROPHILS 4.5 thou/uL (1.6-8.1); BASOPHILS 0.5 %; EOSINOPHILS 1.6 %; HEMATOCRIT 32.2 % (42.0-52.0); HEMOGLOBIN 10.5 gm/dL (14.0-18.0); LYMPHOCYTES 19.6 %; MCH 28.3 pg (26.0-34.0); MCHC 32.6 g/dL (28.0-37.0); MCV 86.6 fL (80.0-100.0); MONOCYTES 6.6 %; MPV 7.2 fl. (7.2-11.1); NUCLEATED RBCS 0 /100WBC; PLATELET COUNT* 189 thou/uL (150-400); POLYS 71.7 %; RBC 3.72 mil/uL (4.50-6.00); RDW-CV 23.4 % (10.5-14.5); WBC 6.3 thou/uL (4.0-11.0)
[2018-01-05 11:21] LABS: % SATURATION 23 % (20-39); IRON 65 ug/dL (50-175)
[2018-01-05 12:13] LABS: ANISOCYTOSIS 2+; PLATELET ESTIMATE ADEQUATE
[2018-01-05 12:14] LABS: HYPOCHROMASIA 1+; MACROCYTES Occasional; MICROCYTES Occasional; POIKILOCYTOSIS 1+
== END ==
LOC: M.LAB 10:22
PROVIDERS: Internal Medicine
DX: D50.9 Iron deficiency anemia, unspecified (principal)

== ENCOUNTER → 2018-01-06 | Outpatient (CLI) | payer OTHER ==
--- NOTE | 2018-01-08 09:50 | HEMONC ---
[address] [address] HEMATOLOGY ONCOLOGY NOTE Name: DARRYN JOSHI Room: [facility]#: [id number] Admission: 01/06/18 Attend Phys: Elba Benton MD Discharge: Date of : 42 Report #: [id number] THIS REPORT FOR: //name// CC: Ashley Aretha Benton DATE OF SERVICE: 01/06/2018 DIAGNOSIS: Iron deficiency anemia. SUBJECTIVE: The patient presented today as of 5 weeks followup. The patient was given IV iron and followup labs revealed that his hemoglobin improved from 6.8 on 11/30 to 10.5 on 01/05. The patient reported a significant improvement in his energy level and shortness of breath. REVIEW OF SYSTEMS: All systems were reviewed. It was negative except the above. PAST MEDICAL, SOCIAL, AND FAMILY HISTORY: Unchanged from previous visits. PHYSICAL EXAMINATION: VITAL SIGNS: Blood pressure is 118/64, pulse 61, respirations 24, temperature is 98.1, saturations 95% on room air. GENERAL: The patient was sitting in a chair, was not in acute distress. LUNGS: Clear to auscultation bilaterally. HEART: Regular rate and rhythm, S1, S2 within normal limits. ABDOMEN: Soft, nontender, nondistended. Bowel sounds positive. EXTREMITIES: No edema, no cyanosis, no clubbing. ASSESSMENT AND PLAN: A 77-year-old male was evaluated because of iron deficiency anemia due to GI bleed. He was on Xarelto for AFib. The patient at the hospital has hemoglobin of 6.8. He had a probable allergic reaction to blood transfusion. The patient received IV iron at the hospital and finished a total of 5 doses of Venofer. His hemoglobin has been trending towards normal. It improved to the level of 10.5. His ferritin level also improved. At this point, I would like to monitor the patient in the next couple of months. Continue oral iron supplement. We will repeat labs in a couple of months. Okay to resume his aspirin. <ELECTRONICALLY SIGNED> By: Elba Benton MD 01/08/18 0950 1103 [id number] Benton MD /nt
== END ==
LOC: M.RTH 01:43
DX: D50.9 Iron deficiency anemia, unspecified (principal)

== ENCOUNTER → 2018-03-04 | Outpatient (CLI) | payer OTHER ==
[2018-03-04 11:10] LABS: ABSOLUTE EOSINOPHILS 0.1 thou/uL (0.0-0.7); ABSOLUTE LYMPHOCYTES 1.5 thou/uL (0.8-5.3); ABSOLUTE MONOCYTES 0.5 thou/uL (0.0-1.2); ABSOLUTE NEUTROPHILS 5.6 thou/uL (1.6-8.1); BASOPHILS 0.6 %; EOSINOPHILS 1.3 %; HEMATOCRIT 34.5 % (42.0-52.0); HEMOGLOBIN 11.5 gm/dL (14.0-18.0); LYMPHOCYTES 19.2 %; MCH 29.9 pg (26.0-34.0); MCHC 33.2 g/dL (28.0-37.0); MCV 90.1 fL (80.0-100.0); MONOCYTES 6.2 %; MPV 7.9 fl. (7.2-11.1); NUCLEATED RBCS 0 /100WBC; PLATELET COUNT* 202 thou/uL (150-400); POLYS 72.7 %; RBC 3.82 mil/uL (4.50-6.00); RDW-CV 15.4 % (10.5-14.5); WBC 7.8 thou/uL (4.0-11.0)
[2018-03-04 12:09] LABS: % SATURATION 25 % (20-39); IRON 87 ug/dL (50-175)
== END ==
LOC: M.LAB 10:34
PROVIDERS: Internal Medicine
DX: D50.9 Iron deficiency anemia, unspecified (principal); I10 Essential (primary) hypertension; E11.9 Type 2 diabetes mellitus without complications; E78.5 Hyperlipidemia, unspecified; G47.33 Obstructive sleep apnea (adult) (pediatric); I25.10 Atherosclerotic heart disease of native coronary artery without angina pectoris; K21.9 Gastro-esophageal reflux disease without esophagitis; Z95.1 Presence of aortocoronary bypass graft

== ENCOUNTER → 2018-03-10 | Outpatient (CLI) | payer OTHER ==
--- NOTE | 2018-03-11 19:41 | HEMONC ---
[address] [address] HEMATOLOGY ONCOLOGY NOTE Name: MADELYNDARRYN LARA Room: [facility]#: [id number] Admission: 03/10/18 Attend Phys: Elba Benton MD Discharge: Date of : 42 Report #: [id number] THIS REPORT FOR: //name// CC: Ashley Benton DATE OF SERVICE: 03/10/2018 DIAGNOSIS: Iron deficiency anemia. SUBJECTIVE: The patient presented today as a 2 months followup. He has been reporting very minimal amount of fatigue and his energy level has improved significantly. He denies any nausea, vomiting or abdominal pain. He denies any shortness of breath. REVIEW OF SYSTEMS: All systems were reviewed, which was negative except the above. MEDICATIONS: List has been reviewed. PAST MEDICAL, SOCIAL AND FAMILY HISTORY: Unchanged from his previous visits. PHYSICAL EXAMINATION: VITAL SIGNS: Today, blood pressure is 154/70, pulse 97, respirations 20, saturations 90% on room air. GENERAL: The patient was sitting in chair, was not in acute distress. LUNGS: Clear to auscultation bilaterally. HEART: Regular rate and rhythm, S1, S2 within normal limits. ABDOMEN: Soft, nontender, nondistended. Bowel sounds positive. LABORATORY DATA: On March 04, WBC 7.8, hemoglobin 11.5; on 11/30/2017 it was 6.8, MCV 90.0. On December 01, it was 79.2, platelets 202. Ferritin is 45 ng/mL. ASSESSMENT: This is a 77-year-old male who was diagnosed with iron deficiency anemia, most likely due to gastrointestinal bleed. The patient has been on Xarelto for AFib. The patient's hemoglobin improved significantly from 6.8 to 11.5 a week ago after IV iron. The patient had a probable allergic reaction to blood transfusion. RECOMMENDATIONS: I would like to keep him on oral iron supplement. We will monitor his labs for the next couple of months, we will obtain CBC and ferritin and iron profile before his next visit. <ELECTRONICALLY SIGNED> By: Elba Benton MD 03/11/18 [id number] Benton MD /nt
== END ==
LOC: M.RTH 04:32
DX: D50.9 Iron deficiency anemia, unspecified (principal)

== ENCOUNTER → 2018-04-27 | Outpatient (CLI) | payer OTHER ==
[2018-04-27 10:01] LABS: ABSOLUTE EOSINOPHILS 0.1 thou/uL (0.0-0.7); ABSOLUTE LYMPHOCYTES 1.6 thou/uL (0.8-5.3); ABSOLUTE MONOCYTES 0.5 thou/uL (0.0-1.2); ABSOLUTE NEUTROPHILS 5.7 thou/uL (1.6-8.1); BASOPHILS 0.5 %; EOSINOPHILS 1.2 %; HEMATOCRIT 35.6 % (42.0-52.0); LYMPHOCYTES 20.2 %; MCH 31.7 pg (26.0-34.0); MCHC 33.8 g/dL (28.0-37.0); MONOCYTES 6.1 %; MPV 7.9 fl. (7.2-11.1); NUCLEATED RBCS 0 /100WBC; PLATELET COUNT* 186 thou/uL (150-400); RBC 3.79 mil/uL (4.50-6.00); RDW-CV 14.4 % (10.5-14.5); WBC 7.9 thou/uL (4.0-11.0)
[2018-04-27 10:50] LABS: % SATURATION 21 % (20-39); IRON 67 ug/dL (50-175)
== END ==
LOC: M.LAB 09:43
PROVIDERS: Internal Medicine
DX: D50.9 Iron deficiency anemia, unspecified (principal); I10 Essential (primary) hypertension; E78.5 Hyperlipidemia, unspecified; K21.9 Gastro-esophageal reflux disease without esophagitis; G47.30 Sleep apnea, unspecified

== ENCOUNTER → 2018-05-05 | Outpatient (CLI) | payer OTHER ==
--- NOTE | 2018-05-07 10:00 | HEMONC ---
[address] [address] HEMATOLOGY ONCOLOGY NOTE Name: MADELYNDARRYN LARA Room: [facility]#: [id number] Admission: 05/05/18 Attend Phys: Elba Benton MD Discharge: Date of : 42 Report #: [id number] THIS REPORT FOR: //name// CC: Ashley Benton Primary Care Physician DATE OF SERVICE: 05/05/2018 DIAGNOSIS: Iron-deficiency anemia. SUBJECTIVE: A 78-year-old male who came in today for followup visit. The patient received IV iron in 12/2017 and his hemoglobin improved from 6.8 in 11/2017 to the level of 12.0 on 04/27/2018. The patient stated that he is feeling significantly better. He regained his strength. He is participating in physical therapy. He denies any shortness of breath or chest pain. REVIEW OF SYSTEMS: All systems were reviewed; it was negative, except as above. PAST MEDICAL HISTORY: Unchanged from previous visit. SOCIAL HISTORY: Unchanged from previous visit. FAMILY HISTORY: Unchanged from previous visit. PHYSICAL EXAMINATION: VITAL SIGNS: Today, blood pressure is 161/71, pulse is 60, respirations 24, saturation is 97% on room air and temperature is 97.9. GENERAL: The patient was sitting in chair, was not in acute distress. LUNGS: Clear to auscultations bilaterally. HEART: Regular rate and rhythm. S1, S2 within normal limits. ABDOMEN: Soft, nontender and nondistended. Bowel sounds positive. ASSESSMENT AND PLAN: A 78-year-old male who was evaluated because of severe microcytic anemia. The patient received IV iron and his hemoglobin very close to be corrected. However, he has chronic kidney disease and diabetes, which can contribute to mild anemia at this point. Plan is to monitor the patient's labs. He is going to [place]. I provided him with labs to check his iron profile and hemoglobin in August. I also advised the patient if he developed fatigue, shortness of breath or chest pain, to proceed to the Emergency Room. I reviewed his previous GI workup, including EGD, which showed small hiatal hernia. Followup based on his labs in 08/2018. <ELECTRONICALLY SIGNED> By: Elba Benton MD 05/07/18 [id number] Benton MD /nt
== END ==
LOC: M.RTH 04:43
DX: D50.9 Iron deficiency anemia, unspecified (principal)

== ENCOUNTER → 2018-09-17 | Outpatient (CLI) | payer OTHER ==
[2018-09-17 11:37] LABS: ABSOLUTE EOSINOPHILS 0.1 thou/uL (0.0-0.7); ABSOLUTE LYMPHOCYTES 1.5 thou/uL (0.8-5.3); ABSOLUTE MONOCYTES 0.5 thou/uL (0.0-1.2); ABSOLUTE NEUTROPHILS 5.9 thou/uL (1.6-8.1); BASOPHILS 0.4 %; HEMATOCRIT 34.5 % (42.0-52.0); HEMOGLOBIN 11.8 gm/dL (14.0-18.0); LYMPHOCYTES 19.2 %; MCH 32.3 pg (26.0-34.0); MCHC 34.1 g/dL (28.0-37.0); MCV 94.6 fL (80.0-100.0); MONOCYTES 6.4 %; MPV 8.2 fl. (7.2-11.1); NUCLEATED RBCS 0 /100WBC; PLATELET COUNT* 176 thou/uL (150-400); RBC 3.65 mil/uL (4.50-6.00); RDW-CV 13.6 % (10.5-14.5)
[2018-09-17 12:40] LABS: % SATURATION 26 % (20-39); IRON 72 ug/dL (50-175)
== END ==
LOC: M.LAB 11:08
PROVIDERS: Internal Medicine
DX: D50.9 Iron deficiency anemia, unspecified (principal)

== ENCOUNTER → 2018-12-15 | Outpatient (CLI) | payer OTHER ==
--- NOTE | 2018-12-16 13:01 | HEMONC ---
[address] [address] HEMATOLOGY ONCOLOGY NOTE Name: MADELYNDARRYN BERMUDEZ Room: [facility]#: [id number] Admission: 12/15/18 Attend Phys: Elba Benton MD Discharge: Date of : 42 Report #: [id number] THIS REPORT FOR: //name// CC: Ashley Benton DATE OF SERVICE: 12/15/2018 DIAGNOSIS: Iron deficiency anemia. SUBJECTIVE: The patient presented today for 6 months followup. Since his last visit, he has been feeling fairly well. He is supposed to have a trip to [place]. However, his daughter had medical complications. The patient denies any pica symptoms; however, he reports some mild to moderate fatigue. I reviewed his labs. In 04/2018, his hemoglobin was 12.0 and on 09/17/2018, hemoglobin was 11.8. Also, his ferritin level was almost stable compared to 04/2018. The patient ran out of iron pills. At this point, he is off anticoagulation. REVIEW OF SYSTEMS: All systems were reviewed. It was negative except for the above. PAST MEDICAL, SOCIAL, AND FAMILY HISTORY: Unchanged from previous visits. His medication list has been reviewed. PHYSICAL EXAMINATION: VITAL SIGNS: Blood pressure is 164/65, pulse is 60, respirations 24, temperature is 98.1, saturations 97% on room air. GENERAL: The patient was sitting in chair, was not in acute distress. LUNGS: Clear to auscultations bilaterally. HEART: Regular rate and rhythm. S1, S2 within normal limits. ABDOMEN: Soft, nontender, nondistended, bowel sounds positive. ASSESSMENT AND PLAN: A 78-year-old male who was initially evaluated around a year ago because of his severe microcytic anemia, the patient received intravenous iron. His hemoglobin has been corrected. In addition to that, he had chronic kidney disease and diabetes mellitus, which can contribute to his mild degree of anemia. However, in the last 6 months, he had a very mild change in his hemoglobin. However, his ferritin has been trending very slowly for the last 12 months. I do recommend increasing his iron supplements[place] [address] HEMATOLOGY ONCOLOGY NOTE Name: MADELYNRAINELICIA BERMUDEZ Room: [facility]#: [id number] Admission: 12/15/18 Attend Phys: Elba Benton MD Discharge: Date of : 42 Report #: [id number] that, follow up labs in 6 weeks to assess if the patient will need intravenous IV iron. Follow up in 12 weeks. <ELECTRONICALLY SIGNED> By: Elba Benton MD 12/16/18 1301 [id number] Benton MD /nt
== END ==
LOC: M.RTH 07:08
DX: D50.9 Iron deficiency anemia, unspecified (principal); E11.22 Type 2 diabetes mellitus with diabetic chronic kidney disease; N18.9 Chronic kidney disease, unspecified; Z79.899 Other long term (current) drug therapy

== ENCOUNTER → 2019-03-30 | Outpatient (CLI) | payer OTHER ==
--- NOTE | 2019-04-01 20:35 | HEMONC ---
[address] [address] HEMATOLOGY ONCOLOGY NOTE Name: MADELYNDARRYN LARA Room: [facility]#: [id number] Admission: 03/30/19 Attend Phys: Elba Benton MD Discharge: Date of : 42 Report #: [id number] THIS REPORT FOR: //name// CC: Ashley Aretha Benton DATE OF SERVICE: 03/30/2019 DIAGNOSIS: Iron deficiency anemia. SUBJECTIVE: The patient presented today as a 6 months followup. He has been doing fairly well compared to his last visit. The patient had a CBC on 03/2014, which compared to September and April 2019, which showed almost stable hemoglobin 12.0, 11.8 and 11.9. I reviewed also his iron studies, which showed that his ferritin has been also within normal range. The patient reported some moderate fatigue. Otherwise, he denies any acute complaints. REVIEW OF SYSTEMS: All systems were reviewed, it was negative except the above. PAST MEDICAL, SOCIAL, AND FAMILY HISTORY: Unchanged from last visit. PHYSICAL EXAMINATION: VITAL SIGNS: Blood pressure is 162/70, pulse 60, respirations 20, temperature is 97.0, saturations 98% on room air. GENERAL: The patient was sitting in chair, was not in acute distress. LUNGS: Clear to auscultations bilaterally. HEART: Regular rate and rhythm. S1, S2 within normal limits. LABORATORY DATA: WBC 8.2, hemoglobin 11.9, platelets 203. Iron studies, ferritin 54, saturation 33, TIBC 274. ASSESSMENT AND PLAN: A 78-year-old male diagnosed with iron deficiency anemia, responded to intravenous iron at this point. His hemoglobin continues to be stable. He had a very mild degree of normocytic anemia with adequate iron stores, most likely related to chronic kidney disease -- diabetes. At this point, the patient remains stable from hematological standpoint. I would like to continue to monitor the patient for one more time in 6 months. <ELECTRONICALLY SIGNED> By: Elba Benton MD 04/01/192034 [id number] [id number] Benton MD /nt
== END ==
LOC: M.RTH 04:56
DX: D50.9 Iron deficiency anemia, unspecified (principal)

== ENCOUNTER → 2019-05-06 | Outpatient (CLI) | payer OTHER ==
[2019-05-06 09:17] LABS: POTASSIUM 4.2 mmol/L (3.5-5.1)
== END ==
LOC: M.LAB 05:22
PROVIDERS: Anesthesiology
DX: E11.9 Type 2 diabetes mellitus without complications (principal); E87.6 Hypokalemia; D64.9 Anemia, unspecified